=== PATIENT | male | born 1945 | race Caucasian/White ===

== ENCOUNTER → 2018-03-15 | Outpatient (CLI) | payer MEDICARE, OTHER ==
[~2018-03-15] MED LIST: ATOR10TA60 PO; CEPH-264 PO; FLUT1DIS3 IH; IOHEXOL 240 MG/ML 50ML VIAL. PO ONE; IOHEXOL 300 MG/ML 100ML VIAL. IV ONE; LINA72CA PO; LOSA50TA6 PO; MELO15TA23 PO; METF500T5 PO; PROAIR HFA8.5 GM INH; RANI150C PO; TAMS0.4C2 PO
--- NOTE | 2018-03-15 09:48 | KCIC ---
CT ABD PELV W/ORAL IV CONTRAST dated 03/15/2018 9:00 AM Indication: Pelvic pain, pain for 8 months history of prior appendectomy. Comparison: 02/07/2013 Technique: Contiguous axial imaging of the abdomen and pelvis performed following the intravenous administration of 100 cc Omnipaque 300 One or more of the following individualized dose reduction techniques were utilized for this examination: 1. Automated exposure control 2. Adjustment of the mA and/or kV according to patient size 3. Use of iterative reconstruction technique Findings: Limited images of lung bases are clear. Heart size within normal limits. No pleural or pericardial effusion. Coronary artery calcifications. Liver is of diffuse low density, compatible with fatty infiltration. No apparent mass. Biliary tree normal in caliber. Gallbladder unremarkable. Spleen, pancreas, adrenal glands unremarkable. There are couple of low-density foci at the upper and mid pole of left kidney that are similar to prior study but most likely represent cysts. Cortical scarring and cystic change of the lower pole right kidney, unchanged. No hydronephrosis. Partially opacified GI tract normal in caliber and contour. No focal bowel wall thickening. No inflammatory stranding in the mesentery. No ascites or lymphadenopathy. Abdominal aorta normal in caliber. Images of pelvis a nondistended urinary bladder. Prostate gland normal in size. No free fluid. There is a mildly enlarged external iliac chain lymph node on the right that measures 1.6 cm short axis versus 2.1 cm previously. Additional right external iliac chain lymphadenopathy previously noted has also somewhat improved. No inguinal or left external iliac chain adenopathy. Bone windows show no acute findings. Multilevel spondylosis. IMPRESSION: 1. No acute abnormality of abdomen or pelvis. 2. Fatty infiltration the liver. 3. Right external iliac chain lymphadenopathy is nonspecific but appears to somewhat improved from the 2013 exam. Correlate clinically Electronically signed by: Markel Mccauley MD (03/15/2018 9:45 AM) [id number]
== END | disposition home or self-care (01) ==
LOC: KCIC CT 07:58
PROVIDERS: ATTEND Family Medicine
DX: K76.0 Fatty (change of) liver, not elsewhere classified (principal); M47.896 Other spondylosis, lumbar region; R59.1 Generalized enlarged lymph nodes
CPT/HCPCS: 74177; Q9966; Q9967

== ENCOUNTER → 2018-07-25 | Outpatient (CLI) | payer MEDICARE, OTHER ==
[~2018-07-25] MED LIST changes: +ALBU2.5V8 INH; -IOHEXOL 240 MG/ML 50ML VIAL. PO ONE; -IOHEXOL 300 MG/ML 100ML VIAL. IV ONE; +LOSA-73 PO; -LOSA50TA6 PO; +METF500T16 PO; -METF500T5 PO; -PROAIR HFA8.5 GM INH
--- NOTE | 2018-07-25 13:08 | KCIC ---
EXAM: Carotid Doppler sonogram. HISTORY: Bruit. TECHNIQUE: Yeung scale and color Doppler sonographic evaluation of the neck with spectral waveform analysis was performed and static images are submitted for review. FINDINGS: There is mild atherosclerotic plaque within the carotid bifurcations. The peak systolic velocity within the right common carotid artery is 78 cm/sec. The peak systolic velocity within the right internal carotid artery is 90 cm/sec and the end diastolic velocity within the right internal carotid artery is 19 cm/sec. The right ICA/CCA ratio is 1.3. The peak systolic velocity within the left common carotid artery is 60 cm/sec. The peak systolic velocity within the left internal carotid artery is 97 cm/sec and the end diastolic velocity within the left internal carotid artery is 23 cm/sec. The left ICA/CCA ratio is 1.61. There is normal antegrade flow within both vertebral arteries. IMPRESSION: No Doppler evidence of hemodynamically significant stenosis within the carotid or vertebral arteries. PQRS Compliance Statement - Stenosis calculations for CT, MR and conventional angiography are based upon measurement of the distal ICA diameter in accordance with the NASCET methodology. Stenosis calculations for carotid ultrasound studies are derived from validated velocity criteria which are known to correlate with the NASCET methodology. Electronically signed by: Melissa Farmer MD (07/25/2018 1:03 PM) [place] [id number]
== END | disposition home or self-care (01) ==
LOC: KCIC US 11:54
PROVIDERS: ATTEND Family Medicine
DX: I70.8 Atherosclerosis of other arteries (principal)
CPT/HCPCS: 93880